=== PATIENT | male | born 1930 | race Caucasian/White ===

== ENCOUNTER 2020-06-01 08:24 | Outpatient (CLI) | payer MEDICARE, BC ==
[~2020-06-01 08:24] MED LIST: AMLO10TA62 PO; ASPI-1264 PO; HYDR50TA3 PO; LOSA100T57 PO; OMEP20TA5 PO; POTA20TA19 PO; SIMV-42 PO; SOTA80TA PO; VIT1CAPS9 PO; WARF-65 PO; WARF6TAB49 PO
== END 2020-06-01 23:59 | disposition home or self-care (01) ==
LOC: 64 CT 08:24
PROVIDERS: ATTEND Family Medicine
DX: R41.0 Disorientation, unspecified (principal)
CPT/HCPCS: 70450